=== PATIENT | female | born 1970 | race Two or more races ===

== ENCOUNTER 2024-04-04 19:22 | Emergency (ER) | payer OTHER ==
[~2024-04-04] VITALS: Ht 152.4 cm; Wt 45.4 kg
[~2024-04-04 19:22] MED LIST: INTESTINEX1 CAP PO; PROTONIX40 MG PO
[2024-04-04] MEDS ORDERED: FAMOTIDINE/PF 20 MG in 0.9 % SODIUM CHLORIDE 8 ML IV PUSH STA (20:44)
[2024-04-04] MEDS ORDERED: METOCLOPRAMIDE HCL 10 MG in DEXTROSE 5 % IN WATER 50 ML IV ONE (20:45)
[2024-04-04 21:26] LABS: HEMATOCRIT 40.2 % (36.0-45.00); HEMOGLOBIN 13.3 g/dL (12.0-15.00); MEAN CELL VOLUME 88.9 fL (80.00-100.00); MEAN CORPUSCULAR HEMOGLOBIN 29.4 pg (27.00-32.0); MEAN CORPUSCULAR HGB CONC 33.1 g/dl (32.0-36.0); PLATELET COUNT 222 K/uL (150-450); RED BLOOD COUNT 4.52 M/uL (4.00-6.00); RED CELL DISTRIBUTION WIDTH 12.3 % (11.5-14.5)
[2024-04-04 21:44] LABS: ALBUMIN 3.8 gm/dL (3.4-5.0); BILIRUBIN TOTAL 0.45 mg/dL (0.3-1.2); CALCIUM 9.5 mg/dL (8.5-10.1); CREATININE SERUM 0.7 mg/dL (0.55-1.02); GFR 88.22; GLOBULINA 3.5 G/DL (2.4-3.5); POTASSIUM 3.95 mEq/L (3.5-5.1); TOTAL PROTEIN 7.3 gm/dL (6.4-8.2)
[2024-04-04 22:02] LABS: PH,URINE 5.5 (5.0-8.0); URINE APPEARANCE Clear; URINE BILIRRUBIN Negative (NEGATIVE); URINE BLOOD Negative; URINE COLOR Yellow; URINE GLUCOSE Negative (NEGATIVE); URINE KETONE Trace (NEGATIVE); URINE LEUKOCYTE Trace; URINE NITRATE Negative; URINE PROTEIN Negative (NEGATIVE)
[2024-04-04 22:06] LABS: URINE BACTERIA 13.8 uL (0.0-1933); URINE EPITHELIAL CELLS 13.2 uL (0.0-38.8); URINE RBC 11.6 uL (0.0-20.8); URINE WBC 13.5 uL (0.0-23.2)
[2024-04-04] MEDS ORDERED: PEPCID AC20 MG PO (22:59)
[2024-04-04] MEDS ORDERED: INTESTINEX680 M1 PO (22:59)
[2024-04-04] MEDS ORDERED: LEVSIN/SL0.125 MG SL (22:59)
== END 2024-04-04 23:04 | disposition home or self-care (01) ==
LOC: ER 19:24
PROVIDERS: General Practice
DX: K29.70 Gastritis, unspecified, without bleeding (principal); K52.89 Other specified noninfective gastroenteritis and colitis